=== PATIENT | female | born 1950 | race Caucasian/White ===

== ENCOUNTER → 2017-10-29 14:19 | Outpatient (CLI) | payer MEDICARE, OTHER, SELFPAY | PROVIDERS: Family Provider Family Medicine; PCP Family Medicine; Visit Provider Family Medicine | DX: N95.9 Unspecified menopausal and perimenopausal disorder (principal) | CPT/HCPCS: 77080 ==

== ENCOUNTER → 2017-11-09 07:22 | Outpatient (CLI) | payer MEDICARE, OTHER, SELFPAY | PROVIDERS: Visit Provider Family Medicine | DX: Z12.31 Encounter for screening mammogram for malignant neoplasm of breast (principal) | CPT/HCPCS: 77063; 77067 ==

== ENCOUNTER → 2018-12-17 | Outpatient (CLI) | payer MEDICARE, OTHER, SELFPAY ==
[2018-12-17 10:42] LABS: Alanine Aminotransfer ALT/SGPT 17 U/L (13-56); Anion Gap 4 (5-15); BUN 11 mg/dL (7-18); BUN/Creat Ratio 15.1 RATIO (10-20); Calcium,Total 8.9 mg/dL (8.5-10.1); Chloride 109 mmol/L (98-107); Cholesterol 204 mg/dL (200); Creatinine, Serum 0.73 mg/dL (0.55-1.02); EST Glomerular Filtration Rate 85 mL/min (>60); Est Glom Filt Rate - Afr Amer 103 mL/min (>60); Glucose 84 mg/dL (74-106); High Density Lipoprotein 73 mg/dL; Sodium Level 142 mmol/L (136-145); Triglycerides 80 mg/dL; Very Low Density Lipoprotein 16 mg/dL (5-40)
== END | disposition home or self-care (01) ==
LOC: LAB 08:04
PROVIDERS: Referring Provider Family Medicine; Visit Provider Family Medicine
DX: Z00.00 Encounter for general adult medical examination without abnormal findings (principal); E78.00 Pure hypercholesterolemia, unspecified
CPT/HCPCS: 36415; 80048; 80061; 84443; 84460

== ENCOUNTER → 2020-01-06 | Outpatient (CLI) | payer MEDICARE, OTHER, SELFPAY ==
--- NOTE | 2020-01-06 07:08 | BI_ITS ---
MAMMOGRAPHY - BILATERAL SCREENING REASON FOR EXAM: Female, 69 years old. Routine annual screening examination. PERTINENT HISTORY: Aunt with breast cancer. Remote left stereotactic breast biopsy. TECHNIQUE: Digital bilateral breast maria isabel (3D mammographic acquisition) in the CC and MLO projections. 2-D mediolateral oblique (MLO) and craniocaudad (CC) views of both breasts were obtained. CAD: Full Field Digital Mammography with Computer Added Detection was performed. COMPARISON: Comparison is made with prior study dated 11/09/2017 and 04/26/2013. FINDINGS: Breast Composition: There are scattered areas of fibroglandular density. There are no dominant masses or suspicious calcifications. Stable benign appearing bilateral axillary lymph nodes. A tissue clip marker is seen in the upper deep lateral portion of the left breast. No other significant abnormalities are identified. There has been no significant change since the prior study. BI/SCREEN MAMM (CAD) W/MARIA ISABEL BILAT IMPRESSION: Stable bilateral screening mammogram. Yearly follow-up mammogram recommended. (A) ASSESSMENT CATEGORY: BIRADS Category 2: Benign. A letter regarding these results will be sent to the patient by the facility within 30 days. Approximately 10% of breast cancers are not detected by mammography. A normal mammogram should not delay biopsy of a clinically suspicious abnormality. [id number] Electronically Signed: Neal Lebron, at 10:06 EDT , Service support ,
== END | disposition home or self-care (01) ==
PROVIDERS: Referring Provider Family Medicine; Visit Provider Family Medicine
DX: Z12.31 Encounter for screening mammogram for malignant neoplasm of breast (principal)
CPT/HCPCS: 77063; 77067

== ENCOUNTER 2020-05-24 16:58 | Outpatient (RCR) | payer MEDICARE, OTHER, SELFPAY ==
[2015-07-17 06:03] VITALS: BMI 35.2
[2020-05-24] MEDS: COVID-19 VACC, MRNA(PFIZER)/PF 30 MCG/0.3 ML SYRINGE IM (18:08)
[2020-06-14] MEDS: COVID-19 VACC, MRNA(PFIZER)/PF 30 MCG/0.3 ML SYRINGE IM (17:27)
== END 2020-05-24 23:59 ==
LOC: IMMUN 16:58
PROVIDERS: PCP Family Medicine; Referring Provider Family Medicine; Visit Provider Family Medicine
DX: Z23 Encounter for immunization (principal)
CPT/HCPCS: 0001A; 0002A; 91300

== ENCOUNTER → 2021-03-07 07:28 | Outpatient (CLI) | payer MEDICARE, OTHER, SELFPAY ==
--- NOTE | 2021-03-07 07:31 | BI_ITS ---
MAMMOGRAPHY - BILATERAL SCREENING REASON FOR EXAM: Female, 70 years old. Routine annual screening examination. PERTINENT HISTORY: Aunt with breast cancer. Remote left stereotactic breast biopsy. TECHNIQUE: Digital bilateral breast chema (3D mammographic acquisition) in the CC and MLO projections. 2-D mediolateral oblique (MLO) and craniocaudad (CC) views of both breasts were obtained. CAD: Full Field Digital Mammography with Computer Added Detection was performed. COMPARISON: Comparison is made with prior study dated 01/06/2020 and 11/09/2017. FINDINGS: Breast Composition: There are scattered areas of fibroglandular density. There are no dominant masses or suspicious calcifications. A tissue clip marker is once again seen in the deep upper lateral aspect of the left breast. Stable benign-appearing bilateral axillary lymph nodes. No other significant abnormalities are identified. There has been no significant change since the prior study. BI/SCREENING MAMM (CAD), BILAT IMPRESSION: Stable bilateral screening mammogram. Yearly follow-up mammogram recommended. (A) ASSESSMENT CATEGORY: BIRADS Category 2: Benign. A letter regarding these results will be sent to the patient by the facility within 30 days. Approximately 10% of breast cancers are not detected by mammography. A normal mammogram should not delay biopsy of a clinically suspicious abnormality. [id number] Electronically Signed: Neal eLbron MD at 8:47 EST , Service support ,
== END ==
PROVIDERS: PCP Family Medicine; Visit Provider Nurse Practitioner Family
DX: Z12.31 Encounter for screening mammogram for malignant neoplasm of breast (principal)
CPT/HCPCS: 77067

== ENCOUNTER → 2022-03-10 | Outpatient (CLI) | payer MEDICARE, OTHER, SELFPAY ==
--- NOTE | 2022-03-10 07:27 | BI_ITS ---
MAMMOGRAPHY - BILATERAL SCREENING REASON FOR EXAM: Female, 71 years old. Routine annual screening examination. PERTINENT HISTORY: Aunt with breast cancer. Remote left stereotactic breast biopsy. TECHNIQUE: Digital bilateral breast maria isabel (3D mammographic acquisition) in the CC and MLO projections. 2-D mediolateral oblique (MLO) and craniocaudad (CC) views of both breasts were obtained. CAD: Full Field Digital Mammography with Computer Added Detection was performed. COMPARISON: Comparison is made with prior study dated 03/07/2021 and 01/06/2020. FINDINGS: Breast Composition: There are scattered areas of fibroglandular density. There are no dominant masses or suspicious calcifications. A tissue clip marker is seen in the deep upper slightly lateral aspect of the left breast. Stable small benign-appearing bilateral axillary lymph nodes. No other significant abnormalities are identified. There has been no significant change since the prior study. BI/SCRN MAMM (CAD)W/MARIA ISABEL BILAT IMPRESSION: Stable bilateral screening mammogram. Yearly follow-up mammogram recommended. (A) ASSESSMENT CATEGORY: BIRADS Category 2: Benign. A letter regarding these results will be sent to the patient by the facility within 30 days. Approximately 10% of breast cancers are not detected by mammography. A normal mammogram should not delay biopsy of a clinically suspicious abnormality. [id number] Electronically Signed: Neal Lebron MD at 11:22 EST ,
== END | disposition home or self-care (01) ==
LOC: OPBI 07:24
PROVIDERS: PCP Family Medicine; Visit Provider Nurse Practitioner Family
DX: Z12.31 Encounter for screening mammogram for malignant neoplasm of breast (principal)
CPT/HCPCS: 77063; 77067

== ENCOUNTER 2022-10-08 13:33 | Emergency (ER) | payer MEDICARE, OTHER, SELFPAY ==
[2022-10-08 13:35] VITALS: BP 156/77; PULSE 90; RESP 18; TEMP 36.6; O2SAT 99; BMI 40.1
--- NOTE | 2022-10-08 13:49 | ED.VIS.FALL ---
HPI HPI - Fall History of Present Illness Chief Complaint: Trauma PFSH PFSH Home Medications oxycodone-acetaminophen 5 mg-325 mg tablet 1 tab PO Q4H PRN PRN Pain ##30 07/17/15 [Rx Last Taken Unknown] oxycodone 5 mg capsule 5 mg PO Q6H PRN pain 4 days #16 caps 10/08/22 [Rx Last Taken Unknown] Allergy/AdvReac Type Severity Reaction Status Date / Time No Known Allergies Allergy Verified 10/08/22 13:38 Social History Smoking Status: Never smoker EXAM Physical Exam Const Vital Signs: 10/08/22 13:35 10/08/22 13:33 10/08/22 15:08 Temperature 98 F 97.8 F Temperature Source Temporal Pulse Rate 90 64 Respiratory Rate 18 14 Respiratory Effort Normal Respiratory Depth Normal Respiratory Pattern Normal Blood Pressure 156/77 H 134/78 H Blood Pressure Mean 103 Pulse Ox 99 99 Oxygen Delivery Method Room Air Nasal Cannula MDM MDM MDM Narrative Medical decision making narrative: HISTORY OF PRESENT ILLNESS: 72-year-old female here with fall from truck. notes hit her head. Denies any loss of consciousness. Denies taking blood thinners. She notes left wrist pain. She endorses she is left-hand dominant. Pain is constant, severe worse with movement. She denies any syncope prior to falling. REVIEW OF SYSTEMS: Pertinent positives: Head trauma, left wrist pain Pertinent negatives: Loss of consciousness, focal weakness PHYSICAL EXAM: Nursing triage notes reviewed, Vital signs reviewed Primary Survey Airway: Intact Breathing: Bilateral breath sounds Circulation: Palpable bilateral femorals, Palpable bilateral radial, Palpable bilateral DP and Palpable bilateral PT Disability / Spine precautions GCS Score: Eye Openin Verbal Response: 5 Motor Response: 6 Secondary Survey Constitutional: Please see MDM Head: Abrasions noted to left face, midface stable, NO jaw malocclusion, No Cephalohematoma, and No Lacerations noted Eye: Pupils equal round and reactive to light, Extraocular muscles intact and No periorbital ecchymosis or stepoff, no evidence of entrapment ENT: Oropharynx clear, no lacerations, no hemotympanum, no raccoon eyes or guzman sign Cervical spine / Neck: No cervical spine bony tenderness, crepitance, or stepoff deformity Trachea midline Lungs: Clear to auscultation, No asymmetric rise and No crepitus, no flail chest Cardiac: Regular rate and rhythm and No murmurs Abdomen: Soft, Nontender and No rebound Pelvis: Pelvis stable to compression : No evidence of genital injury Back: No midline bony tenderness to thoracic/lumbar/sacral spines Neuro: At baseline, intact strength and sensation in bilateral upper and lower extremities. 2+ patellar reflexes bilaterally. Extremities: Obvious left wrist deformity, compartments are soft Psych: Normal affect Skin: Abrasions noted to right forehead right maxilla, no obvious lacerations, no evidence of open fracture Nursing triage notes reviewed, Vital signs reviewed MEDICAL DECISION MAKING: Chief Complaint: Fall, head trauma, left wrist pain External records reviewed: No recent advanced imaging the involved extremities Factors affecting care: none Social determinants of health: none History obtained from others: The patient's Consults: none ALL IMAGES (IF OBTAINED) HAVE BEEN PERSONALLY REVIEWED AND INTERPRETED BY MYSELF. MDM Narrative: Patient was hemodynamically stable, afebrile, nontoxic-appearing. Exam with abrasions noted to the right maxilla. There is no intraoral lesions, hemotympanum or jaw malocclusion noted. Given the patient's age greater than [address] I did obtain a CT scan of her head, cervical spine as well as her face to rule out any traumatic injuries. We will also obtain an x-ray of her left wrist. CT scan of the head shows no evidence of acute intracranial hemorrhage. CT scans of the face and cervical spine show no evidence of acute bony abnormalities. X-ray of the left wrist showed evidence of a distal radius fracture ulnar styloid fracture. We will place the patient in a splint. We will give close orthopedics follow-up. I did discuss incidental finding of possible brain lesion/mass per radiology report will give close follow through the [facility]/ [facility] Fast Pass process. The patient and/or family, caregivers express understanding. The patient and/or family, caregivers agrees with the plan. Shared decision making: I will have a discussion with the patient and or visitors regarding risk/benefits of further testing or admission. They will be made aware of of the risk/benefits inherent in this decision they will be given the opportunity to voice understanding. Total critical care time today provided was at least 0 minutes. This excludes separately billable procedures. Critical care time (if documented) is secondary to the patient having high probability of clinically significant/life threatening deterioration in the patient's condition which required my urgent intervention. Radiography Chest X-Ray - ED: Read by ED Physician Diagnostic Testing: Clinical Impression(s) from Imaging Studies Brain CT 10/08/22 14:13 IMPRESSION: There is a partially dense mass along the right extra-axial space of the inferior right temporal lobe. This is may be a meningioma. Possible overlying cerebral edema. CT with IV can better evaluate. Chronic involutional changes of the brain. Electronically Signed: Doe Spencer MD at 14:49 EDT , Cervical Spine CT 10/08/22 14:13 IMPRESSION: (NOT LISTED IN ORDER OF SIGNIFICANCE) Multilevel degenerative changes, as described above. Left mastoid air cell fluid. There is a lytic cystic focus in the C6 vertebral body measuring 6.2mm. Metastatic focus is not excluded. Electronically Signed: Doe Spencer MD at 14:53 EDT , Facial/Sinus 10/08/22 14:13 IMPRESSION: Soft tissue swelling of the right anterior maxilla region. There is no underlying fracture. Electronically Signed: Doe Spencer MD at 14:50 EDT , Wrist X-Ray 10/08/22 14:37 IMPRESSION: There is non-specific soft tissue swelling. Impacted distal radial metadiaphyseal fracture with articular extension. Fracture of the ulnar styloid. Electronically Signed: Doe Spencer MD at 14:54 EDT , X-ray was personally read and reviewed by myself. X-ray of the left wrist shows evidence of a distal radial styloid fracture as well as an avulsion fracture of the distal ulnar styloid by my read. Procedures Upper Extremity Splints Upper Extremity Splint: Orthoglass Splint Fabrication: Fabricated Location: Left Discharge Plan Triage Chief Complaint: Trauma ED Provider: Jesús Jha Dx/Rx/DC Orders Clinical Impression: Fracture of wrist, Brain lesion, CHI (closed head injury), Abrasion of face Prescriptions: New oxycodone 5 mg capsule 5 mg PO Q6H PRN (Reason: pain) 4 Days Qty: 16 0RF No Action oxycodone-acetaminophen 1 TABLET tablet 1 tab PO Q4H PRN PRN (Reason: Pain) Qty: 30 0RF Other Ambulatory Orders: Fast Pass: Oncology Referral [facility] (Routine) Facility: [facility] - Location: [facility] Ordered By: Dr. Jesús Jha Primary Care Provider: Maicol Boyd Referrals: Maicol Boyd MD [Primary Care Provider] - Maikol Reyes MD [Med Staff - Active Staff] - Activity Restrictions/Additional Instructions: Thank you for trusting us with your care today! Please take Tylenol (2 pills, 650 mg), ibuprofen (2 pills, 400 mg) every 6 hours as needed for pain and fever control. Please take oxycodone if the above regimen does not control your pain. Please return to the emergency department if your symptoms change or worsen. Please look out for signs of increasing pain, blue or black discoloration, decree sensation. These are indications to return to the emergency department. Please follow with your primary care physician and orthopedic surgery for further outpatient evaluation and management. Disposition Disposition: Home, Self Care Discharge Date/Time: 10/08/22 15:31
--- NOTE | 2022-10-08 14:13 | CT_ITS ---
STUDY: CT Spine Cervical W/O Contrast Injection 10/08/2022 2:50 PM REASON FOR EXAM: Female, 72 years old. NECK PAIN neck pain after fall HISTORY: NECK PAIN neck pain after fall TECHNIQUE: High resolution transaxial imaging was performed without intravenous administration of contrast material. Sagittal and coronal images were reconstructed. Individualized dose optimization techniques were used for this CT. COMPARISON: None FINDINGS: Normal craniovertebral junction. Normal anterior atlantoaxial articulation. Normal odontoid process. Normal cervical lordosis. There is a lytic cystic focus in the C6 vertebral body measuring 6.2mm. Left mastoid air cell fluid. C2-3: Normal endplates. Normal disc height and morphology. Normal central canal and intervertebral neuroforamina. C3-4: Normal endplates. Normal disc height and morphology. Normal central canal and intervertebral neuroforamina. C4-5: Normal endplates. Normal disc height and morphology. Normal central canal and intervertebral neuroforamina. C5-6: Loss of intervertebral disc height. There is endplate spondylosis of the vertebral body. Normal central canal and intervertebral neuroforamina. There is bilateral facet arthropathy. C6-7: Loss of intervertebral disc height. There is endplate spondylosis of the vertebral body. Normal central canal and intervertebral neuroforamina. There is bilateral facet arthropathy. C7-T1: Normal endplates. Normal disc height and morphology. Normal central canal and intervertebral neuroforamina. Normal visualized soft tissue structures. CT/Spine Cervical without Contras IMPRESSION: (NOT LISTED IN ORDER OF SIGNIFICANCE) Multilevel degenerative changes, as described above. Left mastoid air cell fluid. There is a lytic cystic focus in the C6 vertebral body measuring 6.2mm. Metastatic focus is not excluded. Electronically Signed: Doe Spencer MD at 14:53 EDT Reading Location ID and State: [facility] / [place] , Service support ,
--- NOTE | 2022-10-08 14:13 | CT_ITS ---
STUDY: CT BRAIN WITHOUT CONTRAST REASON FOR EXAM: Female, 72 years old. head trauma Individualized dose optimization techniques were used for this CT. TECHNIQUE: Transaxial CT imaging of the brain was performed without administration of intravenous contrast material. COMPARISON: None FINDINGS: There are calcifications around the carotid artery. These are noted in the cavernous carotid arteries. Normal calvarium. Normal soft tissues. There is a partially dense mass along the right extra-axial space of the inferior right temporal lobe. This is may be a meningioma. Possible overlying cerebral edema. CT with IV can better evaluate. There is mild cerebral atrophy with widening of the extra-axial spaces and ventricular dilatation. There are areas of decreased attenuation within the white matter tracts of the supratentorial brain, consistent with microvascular disease changes. Normal basal ganglia and thalami. Normal brainstem. There is mild cerebellar atrophy. There is no intracranial hemorrhage. There are no findings of an acute ischemic infarction. Normal visualized paranasal sinuses. ASPECTS Score for Acute Strokes: 10/10 CT/Brain/Head without Contrast IMPRESSION: There is a partially dense mass along the right extra-axial space of the inferior right temporal lobe. This is may be a meningioma. Possible overlying cerebral edema. CT with IV can better evaluate. Chronic involutional changes of the brain. Electronically Signed: Doe Spencer MD at 14:49 EDT ,
--- NOTE | 2022-10-08 14:13 | CT_ITS ---
EXAM: CT MAXILLOFACIAL WITHOUT INTRAVENOUS CONTRAST CLINICAL INDICATION: facial trauma TECHNIQUE: Helically acquired images were obtained of the face without intravenous contrast. This CT exam was performed using one or more of the following dose reduction techniques: automated exposure control, adjustment of the mA and/or kV according to patient size, and/or use of iterative reconstruction technique. RADIATION DOSE: CTDIvol = 29.38 mGy, DLP = 488.69 mGy-cm COMPARISON: No relevant prior studies available. FINDINGS: BONES/JOINTS: Degenerative changes of the mandibular condyles. SOFT TISSUES: Soft tissue swelling of the right anterior maxilla region. There is no underlying fracture. No discrete fluid collections. ORBITS: Unremarkable. Both globes are unremarkable. Extraocular muscles are normal. Retrobulbar fat appears unremarkable. SINUSES: Unremarkable as visualized. Clear. MASTOID AIR CELLS: Unremarkable as visualized. Clear. DENTAL: No acute findings. No periodontal osseous erosion. CT/Sinus/Facial Bone IMPRESSION: Soft tissue swelling of the right anterior maxilla region. There is no underlying fracture. Electronically Signed: Doe Spencer MD at 14:50 EDT ,
[2022-10-08] MEDS: Oxycodone/Apap 5/325 Tablet PO (14:23)
--- NOTE | 2022-10-08 14:37 | RAD_ITS ---
STUDY: XR Wrist Min 3 Views REASON FOR EXAM: Female, 72 years old. wrist pain after fall TECHNIQUE: XR Wrist Min 3 Views LEFT COMPARISON: None FINDINGS: There is demineralization of the radius and ulna. There are no acute findings of the radiocarpal articulation. Normal distal radioulnar articulation. There is demineralization of the carpal bones. Normal carpal articulations. There is degenerative arthrosis of the carpometacarpal articulation of the thumb. Normal second through fifth carpometacarpal articulations. There are no acute findings of the visualized metacarpal bones. There is non-specific soft tissue swelling. Impacted distal radial metadiaphyseal fracture with articular extension. Fracture of the ulnar styloid. RAD/Wrist min 3 Views IMPRESSION: There is non-specific soft tissue swelling. Impacted distal radial metadiaphyseal fracture with articular extension. Fracture of the ulnar styloid. Electronically Signed: Doe Spencer MD at 14:54 EDT ,
[2022-10-08 15:08] VITALS: BP 134/78; PULSE 64; RESP 14; TEMP 36.6; O2SAT 99
--- NOTE | 2022-10-08 15:30 | ED.VIS.FALL ---
HPI HPI - Fall History of Present Illness Chief Complaint: Trauma PFSH PFSH Home Medications oxycodone-acetaminophen 5 mg-325 mg tablet 1 tab PO Q4H PRN PRN Pain ##30 07/17/15 [Rx Last Taken Unknown] oxycodone 5 mg capsule 5 mg PO Q6H PRN pain 4 days #16 caps 10/08/22 [Rx Last Taken Unknown] Allergy/AdvReac Type Severity Reaction Status Date / Time No Known Allergies Allergy Verified 10/08/22 13:38 Social History Smoking Status: Never smoker EXAM Physical Exam Const Vital Signs: 10/08/22 13:35 10/08/22 13:33 10/08/22 15:08 Temperature 98 F 97.8 F Temperature Source Temporal Pulse Rate 90 64 Respiratory Rate 18 14 Respiratory Effort Normal Respiratory Depth Normal Respiratory Pattern Normal Blood Pressure 156/77 H 134/78 H Blood Pressure Mean 103 Pulse Ox 99 99 Oxygen Delivery Method Room Air Nasal Cannula MDM MDM Radiography Diagnostic Testing: Clinical Impression(s) from Imaging Studies Brain CT 10/08/22 14:13 IMPRESSION: There is a partially dense mass along the right extra-axial space of the inferior right temporal lobe. This is may be a meningioma. Possible overlying cerebral edema. CT with IV can better evaluate. Chronic involutional changes of the brain. Electronically Signed: Doe Spencer MD at 14:49 EDT , Cervical Spine CT 10/08/22 14:13 IMPRESSION: (NOT LISTED IN ORDER OF SIGNIFICANCE) Multilevel degenerative changes, as described above. Left mastoid air cell fluid. There is a lytic cystic focus in the C6 vertebral body measuring 6.2mm. Metastatic focus is not excluded. Electronically Signed: Doe Spencer MD at 14:53 EDT , Facial/Sinus 10/08/22 14:13 IMPRESSION: Soft tissue swelling of the right anterior maxilla region. There is no underlying fracture. Electronically Signed: Doe Spencer MD at 14:50 EDT , Wrist X-Ray 10/08/22 14:37 IMPRESSION: There is non-specific soft tissue swelling. Impacted distal radial metadiaphyseal fracture with articular extension. Fracture of the ulnar styloid. Electronically Signed: Doe Spencer MD at 14:54 EDT , Discharge Plan Triage Chief Complaint: Trauma ED Provider: Jesús Jha Dx/Rx/DC Orders Clinical Impression: Fracture of wrist, Brain lesion, CHI (closed head injury), Abrasion of face Prescriptions: New oxycodone 5 mg capsule 5 mg PO Q6H PRN (Reason: pain) 4 Days Qty: 16 0RF No Action oxycodone-acetaminophen 1 TABLET tablet 1 tab PO Q4H PRN PRN (Reason: Pain) Qty: 30 0RF Other Ambulatory Orders: Fast Pass: Oncology Referral [facility] (Routine) Facility: [facility] - Location: [facility] Ordered By: Dr. Jesús Jha Primary Care Provider: Maicol Boyd Referrals: Maicol Boyd MD [Primary Care Provider] - Maikol Reyes MD [Med Staff - Active Staff] - Activity Restrictions/Additional Instructions: Thank you for trusting us with your care today! Please take Tylenol (2 pills, 650 mg), ibuprofen (2 pills, 400 mg) every 6 hours as needed for pain and fever control. Please take oxycodone if the above regimen does not control your pain. Please return to the emergency department if your symptoms change or worsen. Please look out for signs of increasing pain, blue or black discoloration, decree sensation. These are indications to return to the emergency department. Please follow with your primary care physician and orthopedic surgery for further outpatient evaluation and management. Disposition Disposition: Home, Self Care
== END 2022-10-08 15:31 | disposition home or self-care (01) ==
PROVIDERS: Emergency Provider Emergency Medicine; PCP Family Medicine; Visit Provider Emergency Medicine
DX: S52.302A Unspecified fracture of shaft of left radius, initial encounter for closed fracture (principal); S00.81XA Abrasion of other part of head, initial encounter; G93.9 Disorder of brain, unspecified; V58.2XXA Person on outside of pick-up truck or van injured in noncollision transport accident in nontraffic accident, initial encounter; S52.612A Displaced fracture of left ulna styloid process, initial encounter for closed fracture; S09.90XA Unspecified injury of head, initial encounter
CPT/HCPCS: 29125; 70450; 70486; 72125; 73110; 99283

== ENCOUNTER → 2022-10-17 | Outpatient (CLI) | payer MEDICARE, OTHER, SELFPAY ==
--- NOTE | 2022-10-17 16:20 | MRI_ITS ---
STUDY: MRI BRAIN WITH AND WITHOUT CONTRAST REASON FOR EXAM: Female, 72 years old. BRAIN MASS SEEN ON CT TECHNIQUE: Standardized multiplanar fat and water weighted pulse sequences were obtained. IV 20ml clariscan was administered for the contrast portion of the examination. COMPARISON: CT of the brain October 08, 2022 FINDINGS: Minor atrophy and periventricular white matter ischemic changes without mass effect or restricted diffusion. . There is a small homogeneously enhancing dural-based in the right anterolateral temporal lobe measuring approximately 1.35 x 1.5 cm with surrounding mild edema but most consistent with meningioma.. Normal bilateral basal ganglia. Normal thalami. There is no extra-axial fluid accumulation. Normal flow voids within the major intracranial circulation suggesting patency by spin echo criteria. Normal venous enhancement. There is mild focal vascular enhancement of the right frontal parietal lobe most likely representing small venous angioma. Normal sella turcica, pituitary gland, infundibular stalk, optic chiasm and hypothalamus. Normal tectal plate and pineal gland. Normal midbrain, luigi and medulla. Normal cerebellum. Normal basal cisterns. Normal bilateral temporal bones. Normal bilateral internal auditory canals. Postsurgical changes of the orbits. Minor mucosal thickening of left ethmoid air cells. Normal calvarium and skull base. Normal visualized soft tissue structures. Normal visualized upper cervical spine. MRI/Brain W/WO Contrast IMPRESSION: Mild periventricular white matter ischemic change without evidence for acute infarct Findings most consistent with small right temporal lobe meningioma with mild associated edema.. Incidental finding of probable venous angioma in the right frontal parietal region likely of no clinical significance Electronically Signed: Harpal Eli MD at 17:35 EDT ,
== END | disposition home or self-care (01) ==
LOC: MRI 16:02
PROVIDERS: PCP Family Medicine; Referring Provider Internal Medicine Hematology & Oncology; Visit Provider Internal Medicine Hematology & Oncology
DX: G93.9 Disorder of brain, unspecified (principal)
CPT/HCPCS: 70553; A9575

== ENCOUNTER → 2022-10-23 | Outpatient (CLI) | payer MEDICARE, OTHER, SELFPAY ==
--- NOTE | 2022-10-23 08:41 | NM_ITS ---
CLINICAL: 72-year-old female with history of sixth cervical vertebra radiographic abnormality. WHOLE BODY 99m Tc MDP RADIONUCLIDE BONE SCINTIGRAPHY COMPARISON: None available FINDINGS: Following the intravenous administration of 26.0 mCi of 99m Tc MDP, whole body bone images reveal: 1. Increased tracer uptake is identified in the mid cervical spine posteriorly on the right, acromioclavicular and sternoclavicular compartments of both shoulders, lateral glenohumeral compartment of the right shoulder, the visualized right wrist, the medial tibial compartment of the right knee, patellofemoral compartments of the bilateral knees, both ankle articulations, the third and fifth lumbar vertebra. 2. The remaining skeletal structures are scintigraphically unremarkable with normal-appearing renal images and urinary bladder activity identified. NM/Bone Scan Whole Body IMPRESSION: 1. The increase in radiopharmaceutical concentration defined in the cervical and lumbar spine, bilateral shoulders, the right wrist, the right-left knees and ankle articulations bilaterally is commensurate with degenerative arthrosis. 2. Meticulous attention paid to the sixth thoracic vertebra demonstrates no scintigraphic abnormalities on the current examination. Electronically Signed: Luis Aguila, at 9:39 EDT ,
== END | disposition home or self-care (01) ==
LOC: NM 08:34
PROVIDERS: PCP Family Medicine; Referring Provider Internal Medicine Hematology & Oncology; Visit Provider Internal Medicine Hematology & Oncology
DX: M89.9 Disorder of bone, unspecified (principal)
CPT/HCPCS: 78306; A9503

== ENCOUNTER 2022-12-24 15:30 | Outpatient (RCR) | payer MEDICARE, OTHER, SELFPAY ==
--- NOTE | 2022-12-03 08:54 | HP.OTEVAL_ITS ---
Patient's Visit Information Visit Information Visit Information: RODRIGO LAWRENCE is a 72 year old F, referred to Occupational Therapy by ULYSSES Shafer, with a diagnosis of left distal radius/ulnar fx. Date of Evaluation: 12/03/22 Occupational Therapist: Fatimah Walter, SARAY/[place], CHT Subjective Subjective: This 72 year old female was seen for OT eval with dx of left Ulna and radius fx - pt state she had fall October 08 2022. pt states she did not realize it was broken- pt states about an hour later left wrist became more painful and went to ER. Pt states she was splinted and referred to [facility] on ThursdayOctober 13 and this was the day she was casted. Cast was removed 11/28/22. pt currently using OTS wrist brace. pt is right handed. pt states she would like to return to her PLOF of IND with ADLs IADLs and volunteering at [employer]. Pain left wrist: Current Pain Intensity: 0 Pain Intensity Range: 2 ROM Wrist: right 65/60 left 45/20 Strength Roll Over Press Operator: right 50# left NT Lateral Pinch: right 18# NT Tripod Pinch: right 12# NT Sensation Sensation Comments: Denies Quick DASH-Disab of Arm,Shoulder& Hand Quick DASH Score: 37.5000 Goals Goal:ROM equal to unaffected hand: Yes Comment: left wrist ROM equal to right to increase IND with ADLS and IADLS by d/c Goal:Roll Over Press Operator/Pinch strength at least 75% of unaffected hand: Yes Comment: will initiate 8 weeks post casting Goal:No pain with affected hand use: Yes Goal:Full use of affected hand in daily activities including work: Yes Rehabilitation General Assessment: pt arrives 7 weeks and 2 days out from DOI. AND 5 days out of cast. pt demo with limited left wrist ROM and inability to use left hand for ADLS and IADls. Pt would benefit from skilled OT services 1-2x week for 4-6 weeks to return pt to her PLOF. Today therapist ed. pt on POC and ed. on AROM ex of wrist and forearm. pt was given handout she demo understanding of ex and agree to POC. Rehabilitation Potential: Excellent Anticipated Interventions Anticipated Interventions: A/AAROM/PROM, Strengthening, Triggerpoint Release, Modalities, Education re Diagnosis and Home Program Visit Plan Frequency: 1-2x /Week Duration: 6 Weeks General Plan: anticipate pt will do well gain functional ROM initiate light strengthening at week 8 as long as no increase in pain TEXT: Thank you for the opportunity to evaluate your patient. For Medicare and Medicare HMO plans, please review the plan of care and approve it. It will need to be FAXED BACK to us at [phone] for Medicare purposes. Please let me know if there are questions or concerns regarding this plan of care. Physician Signature: Date:
== END 2022-12-24 19:00 | disposition home or self-care (01) ==
LOC: OT 15:30
PROVIDERS: PCP Family Medicine; Referring Provider Physician Assistant Surgical; Visit Provider Physician Assistant Surgical
DX: S52.615D Nondisplaced fracture of left ulna styloid process, subsequent encounter for closed fracture with routine healing (principal); S52.515D Nondisplaced fracture of left radial styloid process, subsequent encounter for closed fracture with routine healing
CPT/HCPCS: 97110; 97140; 97166

== ENCOUNTER → 2023-01-26 | Outpatient (CLI) | payer MEDICARE, OTHER, SELFPAY ==
--- NOTE | 2023-01-26 07:58 | MRI_ITS ---
STUDY: MRI CERVICAL SPINE WITH AND WITHOUT CONTRAST REASON FOR EXAM: Female, 72 years old. BONE LESION ON C6 FOUND ON CT 10/08/22 TECHNIQUE: Standardized fat and water weighted pulse sequences were obtained in the sagittal and axial following administration of IV 19ml clariscan. COMPARISON: CT of the cervical spine dated October 08, 2022 FINDINGS: Normal foramen magnum and brainstem-cervical cord junction. Normal craniovertebral junction. Normal anterior atlantoaxial articulation. Normal odontoid process. There is reversal of the normal cervical lordosis. No marrow edema or fracture or compression deformity is present. Small cystic lesion seen C2-3: Normal endplates. Diffuse disc desiccation. Normal disc height and morphology. Normal central canal and intervertebral neural foramina. C3-4: Normal endplates. Diffuse disc desiccation. Normal disc height and morphology. Normal central canal and intervertebral neural foramina. C4-5: Normal endplates. Diffuse disc desiccation with mild disc space narrowing and a moderate size midline disc protrusion measuring 6.1 mm in diameter causing compression on the anterior midline aspect of the cord. Normal intervertebral neural foramina. C5-6: Small benign fatty hemangioma on the right half of the C6 vertebral body. There is no enhancement or lytic or blastic lesion in this region or in the remaining bony structures. The cystic lesion seen on the recent CT is compatible with a hemangioma. Normal endplates. Diffuse disc desiccation with mild disc space narrowing and slight posterior annular bulging. Mild central canal stenosis. Normal intervertebral neural foramina. C6-7: Normal endplates. Diffuse disc desiccation with mild to moderate disc space narrowing and posterior annular bulging eccentric to the left resulting in mild central canal stenosis and thecal sac effacement. Normal intervertebral neural foramina. C7-T1: Normal endplates. Normal disc height, signal and morphology. Normal central canal and intervertebral neural foramina. Normal cervical cord. There is no demonstrated cervical cord syrinx cavity. There are no demyelinating lesions or abnormal enhancement of the spinal cord. Normal visualized soft tissue structures. MRI/Spine Cervical W/WO Contrast IMPRESSION: 1. Multilevel degenerative changes, as described above. 2. Small benign fatty hemangioma on the right half of the C6 vertebral body. There is no enhancement or lytic or blastic lesion in this region or in the remaining bony structures. The cystic lesion seen on the recent CT is compatible with a hemangioma. 3. C4-C5 moderate size midline disc protrusion measuring 6.1 mm in diameter causing compression on the anterior midline aspect of the cord. Electronically Signed: Genaro Amos MD at 15:42 EST ,
== END | disposition home or self-care (01) ==
LOC: MRI 07:54
PROVIDERS: PCP Family Medicine; Referring Provider Internal Medicine Hematology & Oncology; Visit Provider Internal Medicine Hematology & Oncology
DX: M89.9 Disorder of bone, unspecified (principal)
CPT/HCPCS: 72156; A9575

== ENCOUNTER → 2023-03-11 | Outpatient (CLI) | payer MEDICARE, OTHER, SELFPAY ==
--- NOTE | 2023-03-11 07:20 | BI_ITS ---
MAMMOGRAPHY - BILATERAL SCREENING REASON FOR EXAM: Female, 72 years old. Routine annual screening examination. PERTINENT HISTORY: Aunt with breast cancer. History of prior left stereotactic breast biopsy. TECHNIQUE: Digital bilateral breast maria isabel (3D mammographic acquisition) in the CC and MLO projections. 2-D mediolateral oblique (MLO) and craniocaudad (CC) views of both breasts were obtained. CAD: Full Field Digital Mammography with Computer Added Detection was performed. COMPARISON: Comparison is made with prior study dated March 10, 2022 and March 07, 2021. FINDINGS: Breast Composition: There are scattered areas of fibroglandular density. There are no dominant masses or suspicious calcifications. A tissue clip marker is seen in the deep upper slightly outer aspect of the left breast. Stable bilateral fat containing axillary lymph nodes. No other significant abnormalities are identified. There has been no significant change since the prior study. BI/SCRN MAMM (CAD)W/MARIA ISABEL BILAT IMPRESSION: Stable bilateral screening mammogram. Yearly follow-up mammogram recommended. (A) ASSESSMENT CATEGORY: BIRADS Category 2: Benign. A letter regarding these results will be sent to the patient by the facility within 30 days. Approximately 10% of breast cancers are not detected by mammography. A normal mammogram should not delay biopsy of a clinically suspicious abnormality. [id number] Electronically Signed: Neal Lebron MD at 9:11 EST ,
== END | disposition home or self-care (01) ==
LOC: OPBI 07:19
PROVIDERS: PCP Family Medicine; Referring Provider Nurse Practitioner Family; Visit Provider Nurse Practitioner Family
DX: Z12.31 Encounter for screening mammogram for malignant neoplasm of breast (principal)
CPT/HCPCS: 77063; 77067

== ENCOUNTER → 2024-03-25 | Outpatient (CLI) | payer MEDICARE, OTHER, SELFPAY ==
--- NOTE | 2024-03-25 10:46 | BI_ITS ---
MAMMOGRAPHY - BILATERAL SCREENING 3-D TOMOSYNTHESIS REASON FOR EXAM: Female, 73 years old. Routine screen PERTINENT HISTORY: Aunt with breast cancer.. TECHNIQUE: 2-D mammograms and 3-D Tomosynthesis of the breast (s) were performed. CAD was performed. COMPARISON: 03/07/2021 FINDINGS: The breast composition is composed of scattered fibroglandular density. Scattered benign calcifications are seen. No dense spiculated masses or suspicious microcalcifications are identified. No architectural distortion is identified. There is no skin thickening or retraction. There has been no significant change since the prior study. BI/SCRN MAMM (CAD)W/MARIA ISABEL BILAT IMPRESSION: No mammographic signs of malignancy. Routine yearly mammograms recommended. ASSESSMENT CATEGORY: BIRADS Category 1: Negative. A letter regarding these results will be sent to the patient by the facility within 30 days. FOLLOW UP RECOMMENDATION: Yearly follow up mammogram recommended. (A) Approximately 10% of breast cancers are not detected by mammography. A normal mammogram should not delay biopsy of a clinically suspicious abnormality. Electronically Signed: Radu Zurita MD at 13:05 EST ,
== END | disposition home or self-care (01) ==
LOC: OPBI 10:41
PROVIDERS: PCP Family Medicine; Referring Provider Family Medicine; Visit Provider Family Medicine
DX: Z12.31 Encounter for screening mammogram for malignant neoplasm of breast (principal)
CPT/HCPCS: 77063; 77067

== ENCOUNTER 2024-05-06 07:14 | Outpatient (CLI) | payer MEDICARE, OTHER, SELFPAY ==
[2024-05-06 08:16] LABS: ALB/GLOB Ratio 0.8 RATIO (0.9-2.4); AST(SGOT) 16 U/L (15-37); Alanine Aminotransfer ALT/SGPT 20 U/L (13-56); Albumin, Serum 3.3 g/dL (3.2-5.0); Alkaline Phosphatase 100 U/L (45-117); Anion Gap 5 (5-15); BUN 12 mg/dL (7-18); BUN/Creat Ratio 14.9 RATIO (10-20); Calcium,Total 9.1 mg/dL (8.5-10.1); Chloride 110 mmol/L (98-107); Cholesterol 184 mg/dL (200); EST Glomerular Filtration Rate 75 mL/min (>60); Est Glom Filt Rate - Afr Amer 90 mL/min (>60); Globulin 3.9 g/dL (2.2-4.2); Glucose 95 mg/dL (74-106); High Density Lipoprotein 70 mg/dL; Potassium 4.2 mmol/L (3.5-5.1); Protein, Total 7.2 g/dL (6.4-8.2); Sodium Level 143 mmol/L (136-145); Triglycerides 104 mg/dL; Very Low Density Lipoprotein 21 mg/dL (5-40)
[2024-05-06 08:18] LABS: Vitamin D,25 Hydroxy 10.1 ng/mL
== END 2024-05-06 23:59 | disposition home or self-care (01) ==
LOC: LAB 07:16
PROVIDERS: PCP Family Medicine; Referring Provider Family Medicine; Visit Provider Family Medicine
DX: E66.812 Obesity, class 2 (principal); M85.80 Other specified disorders of bone density and structure, unspecified site
CPT/HCPCS: 36415; 80053; 80061; 82306; 84443

== ENCOUNTER → 2024-05-11 | Outpatient (CLI) | payer MEDICARE, OTHER, SELFPAY ==
--- NOTE | 2024-05-11 10:23 | BD_ITS ---
PROCEDURE: DEXA BONE DENSITY STUDY REASON FOR EXAM: F, age 74 y/o . Postmenopausal. TECHNIQUE: DEXA scan of the lumbar spine and both hips. COMPARISON: None. FINDINGS: T-SCORES Lumbar spine: DEXA examination lumbar spine shows a bone mineral density measured 0.904 grams/centimeter sq. T-score measures -1.2 Left hip: Total bone mineral density of the left hip measures 0.956 grams/centimeter sq. T-score measures 0.1 and Z-score measures 1.7. Bone mineral density of the left femoral neck measures 0.669 grams/centimeter squared. T-score measures -1.6 and Z-score measures 0.3. Right hip: Total bone mineral density of the right femoral neck measures 0.975 grams/centimeter squared for T-score measures 0.3 and Z-score measures 1.9. Bone mineral density of the right femoral neck measures 0.729 grams/centimeter sq. T-score measures -1.1 and Z-score measures 0.8. Patient demonstrates osteopenia of the lumbar spine and both hips. FRAX* Results: 10 Year Probability of Fracture: Hip Fracture(1): 15% Major Osteoporotic Fracture(2): 2.3% *FRAX is a trademark of the [employer]'s [place] for Metabolic Bone Disease, World Health Organization (WHO) Collaborating [place]. 1-The 10-year probability of fracture may be lower than reported if the patient has received treatment. 2-Major Osteoporotic Fracture: Clinical Spine, Forearm, Hip or Shoulder. The T-scores are also available for review on the [facility] PACS or by accessing the [facility] electronic medical record. BD/Dexa Bone Density Study IMPRESSION: OSTEOPENIA. Reading Location: [id number]
== END | disposition home or self-care (01) ==
LOC: OPBD 10:17
PROVIDERS: PCP Family Medicine; Referring Provider Family Medicine; Visit Provider Family Medicine
DX: M85.80 Other specified disorders of bone density and structure, unspecified site (principal); Z78.0 Asymptomatic menopausal state
CPT/HCPCS: 77080

== ENCOUNTER 2024-07-25 07:42 | Day surgery (SDC) | payer MEDICARE, OTHER, SELFPAY ==
[2024-07-25] VITALS (8 sets, daily range): BP systolic 103–170; BP diastolic 60–92; PULSE 64–73; RESP 16–18; TEMP 36.3–36.6; O2SAT 94–98; BMI 37.8
[2024-07-25] MEDS: Lactated Ringers 1,000 ML 15 ML IV (08:00)
--- NOTE | 2024-07-25 08:11 | PCM.PRE.AN2 ---
ASA Classification* ASA Classification ASA Classification: 3 (Please check her BP prior to starting the case. If SBP > 180 we will cancel. I discussed with the patient the importance of HTN control, and the patient would like to proceed today knowing the risks of possible PA and CVA given the HTN. May be related to white coat HTN. Otherwise healthy) Assessment & Plan Anesthesia* Anesthesia Assessment Anesthesia Assessment: Discussed sedation and/or anesthesia options, risks, benefits, and alternatives with patient/parents/legal guardian/POA. Questions invited. The patient/parents/legal guardian/POA seems to understand and agrees to proceed with anesthesia plan. Reviewed the physical assessment, medical history, allergy history and patient home medications list prior to surgery/procedure/anesthetic and documented any changes. Performed airway and anesthesia risk assessments. Anesthesia Type Anesthesia Type: General History Source History Obtained from:: Patient and Chart Anesthesia Focused Assessment* Temperature: 97.8 F Pulse Rate: 68 Blood Pressure: 170/91 Respiratory Rate: 18 Pulse Ox: 98 Oxygen Delivery Method: Room Air Airway Assessment Mouth opens: >3 cm Mallampati Score: II Teeth Condition: Intact Neck Range of motion (ROM): Full ROM Focused Labs Anesthesia Preop lab: CBC WBC 6.4 K/mm3 (4.4-11.0) 10/13/22 14:17 10/13/22 RBC 4.52 M/mm3 (4.2-5.4) 10/13/22 14:17 10/13/22 Hgb 10.7 g/dL (12.0-15.0) L 10/13/22 14:17 10/13/22 Hct 36.1 % (37-47) L 10/13/22 14:17 10/13/22 Plt Count 296 K/mm3 (150-450) 10/13/22 14:17 10/13/22 CHEMISTRY Potassium 4.2 mmol/L (3.5-5.1) 05/06/24 07:18 05/06/24 Sodium 143 mmol/L (136-145) 05/06/24 07:18 05/06/24 BUN 12 mg/dL (7-18) 05/06/24 07:18 05/06/24 Creatinine 0.80 mg/dL (0.55-1.02) 05/06/24 07:18 05/06/24 Glucose 95 mg/dL (74-106) 05/06/24 07:18 05/06/24 TSH 2.570 uIU/mL (0.358-3.740) 05/06/24 07:18 05/06/24 COAG Pre-Assessment Diagnosis/Proposed Procedure Planned Operative Procedure(s): CSCOPE OA Anesthesia History Anesthesia History - grade recorder: Anesthesia History - grade recorder Hx Hospitalization No 07/19/24 16:00 Any Problems With Anesthesia No 07/19/24 16:00 Cholinesterase deficiency No 07/19/24 16:00 You/Your Family Experience No 07/19/24 16:00 fever (hyperthermia) with Relationship Recent Exposure to Contagious No 07/25/24 07:56 Disease Does patient have nerve No 07/19/24 16:00 stimulator Patient instructed to have device shut off --Does patient have Pacemaker No 07/25/24 07:56 or ICD? When Was Last Pacemaker Check QUESTION #4 FULL TEXT: You/Your Family Experience fever (hyperthermia) with Anesthesia Last Oral Intake Last Oral intake: Last Oral Intake NPO since 05:00 07/25/24 07:56 Meds taken in AM with sips of No 07/25/24 07:56 water? Meds patient instructed to take am of surgery PONV PONV - grade recorder: PONV - grade recorder Female Yes 07/19/24 16:00 HX of Motion Sickness No 07/19/24 16:00 HX of N/V After Surgery No 07/19/24 16:00 Non-Smoker Yes 07/19/24 16:00 Duration of Surgery greater No 07/19/24 16:00 than 60 minutes Number of Risk Factors 2 07/19/24 16:00 PONV Score Moderate Risk 07/19/24 16:00 Height & Weight Height & Weight: Anesthesia: Height & Weight Height 5 ft 3 in 07/25/24 07:56 Weight: 96.7 kg 07/25/24 07:56 Body Mass Index (BMI) 37.8 07/25/24 07:56 Respiratory Assessment Respiratory Assessment - grade recorder: Respiratory Tract Infection Hx - grade recorder Hx Respiratory Tract Infection No 07/19/24 16:00 STOP Sleep Apnea STOP Sleep Apnea - grade recorder: STOP Sleep Apnea - grade recorder Hx Hypertension No 07/19/24 16:00 Hx Sleep Apnea No 07/19/24 16:00 CPAP BIPAP Do you snore loudly (louder No 07/19/24 16:00 than talking or can be heard Do you often feel tired/ No 07/19/24 16:00 fatigued/ sleepy during daytime? Has anyone observed you stop No 07/19/24 16:00 breathing during sleep? STOP Results Negative 07/19/24 16:00 QUESTION #5 FULL TEXT : Do you snore loudly (louder than talking or can be heard through closed doors)? Tobacco Use History Tobacco Use History - grade recorder: Tobacco Use History - grade recorder Tobacco Use Smoking Status Never smoker 07/19/24 16:00 Hx Tobacco Use No 07/19/24 16:00 Years Smoking Packs Smoked per Day Smoking Cessation Date was within the last 15 years Hx Smoking Cessation Date Hx Smoking Cessation Counseling Hematologic Medial History Hematologic Hx - grade recorder: Hematologic Medical Hx - gis analyst Hx of Blood Transfusion No 07/19/24 16:00 Hx of Transfusion in last 3 No 07/19/24 16:00 Months Date of Last Transfusion (if within last 3 months) Ever experience any problems No 07/19/24 16:00 with transfusion(s)? Specify any problems Hx of Preganancy in last 3 No 07/19/24 16:00 Months Nurse Filling Out Transfusion DSCHRIBER 07/19/24 16:00 & Questions: Date: 07/19/24 07/19/24 16:00 Time: 16:01 07/19/24 16:00 Patient unable to answer at this time (ie. confused, unrespo /Reproduction History /Reproductive History - grade recorder: /Reproductive Hx- grade recorder Hx Now No 07/19/24 16:00 Gestational Age (in weeks): EDC: Hx Hx Para Hx Section SAB No 07/19/24 16:00 Active Medications Active Medications: Current Medications Generic Name Dose Route Start Last Admin Trade Name Freq PRN Reason Stop Dose Admin Lactated Ringer's 1,000 mls @ 15 mls/hr 07/25/24 08:00 07/25/24 08:00 IV 15 mls/hr .Q48H DEEP Administration PFSH Medical History (Updated 07/19/24 @ 16:04 by Kinza Nur) Wears partial dentures Post-menopausal Alcohol use Arthritis Shortness of breath on exertion Non-smoker Family history of colon cancer in father Lesion of bone of cervical spine Brain mass Home Medications ?Medication ?Instructions ?Recorded ?Last Taken ?Type calcium carbonate 600 mg PO DAILY 07/19/24 07/24/24 History cholecalciferol (vitamin D3) 50 50 mcg PO DAILY 07/19/24 07/24/24 History mcg (2,000 unit) capsule (Vitamin D3) Allergy/AdvReac Type Severity Reaction Status Date / Time No Known Allergies Allergy Verified 07/25/24 07:55 Family History Mother Heart disease Brother Cancer throat Father Colon cancer Surgical History (Updated 07/19/24 @ 16:04 by Kinza Nur) Hx of colonoscopy Hx of cataract surgery Hx of appendectomy History of cholecystectomy Social History (Updated 05/17/24 @ 08:32 by Marium Ambrose) household members: spouse housing: house current occupational status: retired Smoking Status: Never smoker alcohol intake: current alcohol intake frequency: holidays/special occasions only substance use type: does not use Review of Systems (Anesthesia) ROS Narrative System reviewed and no additional complaints, except as documented. Physical Exam Const alert, oriented x3 and average body habitus Resp normal respiratory effort, normal air movement and clear to auscultation bilaterally Cardio regular rate, regular rhythm, no murmurs and diaphoretic
--- NOTE | 2024-07-25 08:51 | H&P.OPEN ---
HPI - General General Date of Service: 07/25/24 HPI Narrative RODRIGO LAWRENCE, is a 74 F who presents for screening colonoscopy. Patient last colonoscopy was in [address] Rothman. Patient's father did have colon cancer which did spread in his late 60s. Patient denies any chronic abdominal pain/nausea/vomiting/reflux. Patient has bowel movements every other day denies any blood. [facility] Medical History (Updated 07/25/24 @ 08:[address] Ratna Syed MD) Wears partial dentures Post-menopausal Alcohol use Arthritis Shortness of breath on exertion Non-smoker Family history of colon cancer in father Lesion of bone of cervical spine Brain mass Home Medications ?Medication ?Instructions ?Recorded ?Last Taken ?Type calcium carbonate 600 mg PO DAILY 07/19/24 07/24/24 History cholecalciferol (vitamin D3) 50 50 mcg PO DAILY 07/19/24 07/24/24 History mcg (2,000 unit) capsule (Vitamin D3) Allergy/AdvReac Type Severity Reaction Status Date / Time No Known Allergies Allergy Verified 07/25/24 07:55 Family History Mother Heart disease Brother Cancer throat Father Colon cancer Surgical History (Updated 07/19/24 @ 16:04 by Kinza Nur) Hx of colonoscopy Hx of cataract surgery Hx of appendectomy History of cholecystectomy Social History (Updated 05/17/24 @ 08:32 by Marium Ambrose) household members: spouse housing: house current occupational status: retired Smoking Status: Never smoker alcohol intake: current alcohol intake frequency: holidays/special occasions only substance use type: does not use Past Medical/Surgical History Planned Operation Planned Operative Procedure(s): CSCOPE OA S.O.S: No Previous Hospitalizations/Surgeries HX Hospitalizations: No HX of Surgeries: COLONOSCOPY 2016 VAG CHILDBIRTH X 2 Any Problems With Anesthesia: No You/Your Family Experience Fever (Hyperthermia) With Anes: No Cholinesterase deficiency: No Cardiovascular Hx Chest Pain within Last 2 months: No Hx of Irregular Heartbeat and/or Afib: No Hx Heart Attack: No Hx Congestive Heart Failure: No Hx Rheumatic Fever: No Hx Hypertension: No Hx Internal Defibrillator: No Hx Pacemaker: No Hx Cardiac Catheterization: No Hx Cardiac Surgery/Stents/Etc.: No Hx Stress Test: No Hx Pain in Legs when Walking/Leg Cramps: No Respiratory Chronic Cough: No HX of Shortness of Breath: No Hoarseness: No Hx Chronic Obstructive Pulmonary Disease (COPD): No Hx Asthma: No Hx Emphysema: No Hx Sleep Apnea: No Hx Respiratory Tract Infection/Cold (presently): No Do You Snore Loudly (louder than talking or can be heard): No Do You Often Feel Tired/ Fatigued/ Sleepy Dring Daytime?: No Has Anyone Observed You Stop Breathing During Sleep?: No Result (for STOP score): Negative Hx Smoking: No Smoking Status: Never smoker Gastrointestinal Hx Gastrointestinal Disorders: No Hx Gastrointestinal Bleed: No Hx Ulcer: No Hx Hiatal Hernia: No Difficulty Chewing/Swallowing: No Special diet followed at home: No Hx Unplanned Weight Loss of 20#: No HX Unplanned Weight Gain of 20#: No Neurological Hx Seizures: No HX Syncope/Blackout Spells/Unconsciousness: No Hx Transient Ischemic Attacks (TIA): No Hx Multiple Sclerosis: No Hx Parkinson's Disease: No Hx Head/Neck Injury: No Hx Headaches: No Hx Back Injury/Pain: No Recent Onset of Speech Difficulty: No Restless Legs: No Does patient have nerve stimulator: No Blood Disorder Hx Leukemia: No Bleeding Tendencies: No Hx Deep Vein Thrombosis: No Hx High Cholesterol: Yes (NO MEDS) Blood Transmitted Disease: No Hx Hepatitis: No Hx Cirrhosis: No Hx Anemia: No Hx Blood Disorders: No Reproduction : No Is Patient Lactating: No Hx Hysterectomy: No Hx Tubal Ligation: No Are You Post Menopause: Yes Genitourinary Hx Renal Disease: No Hx Dialysis: No Musculoskeletal Hx Arthritis: Yes Hx Rheumatoid Arthritis: No Hx Gout: No Recent Onset of an Orthopedic Problem: No Endocrine Hx Diabetes: No Thyroid Disease: No Hx Steroid Therapy: No Psycho/Social Hx Substance Use: No Hx Alcohol Use: Yes (OCCASIONAL SOCIAL) Hx Anxiety: No Hx Depression: No Mental Illness: No Hx Dementia: No Miscellaneous Hx Cancer: No Recent Exposure to Contagious Disease: No Hx of C-Diff: No Any Loose Teeth: No Allergies No Known Allergies Allergy (Verified 07/25/24 07:55) Discharge Is Pt Admitted From a Senior Living, or a Halfway: No After D/C, Where Do you Plan to Go: Return Home From the PAT History Number of Risk Factors: 2 Vital Signs Vital Signs Vital Signs: 07/25/24 07:56 07/25/24 07:56 07/25/24 08:16 Temperature 97.8 F 97.8 F Temperature Source Temporal Pulse Rate 68 68 Respiratory Rate 18 18 Respiratory Pattern Normal Blood Pressure 170/91 H 170/91 H Blood Pressure Mean 117 Blood Pressure Source Monitor Blood Pressure Position Semi-Fowlers Blood Pressure Location Left Arm Pulse Ox 98 98 Oxygen Delivery Method Room Air Room Air Weight Weight: 213 lb 2.992 oz Body Mass Index (BMI) 37.8 Physical Exam Const alert, oriented x3 and no apparent distress HEENT normocephalic and head/scalp atraumatic Resp normal respiratory effort Cardio regular rate GI soft to palpation and non-tender; Negative for non-distended Palpation: Negative for guarding Extremity no clubbing, cyanosis or edema Skin no rashes or lesions noted Neuro CN's II-XII intact bilaterally Psych mental status grossly normal Assessment & Plan Assessment/Plan (1) Family history of colon cancer in father: Surgery Risks - Colonoscopy I discussed with the patient the risks of the procedure: Yes Risks Include but are not Limited To: Risks include but are not limited to: Bleeding, perforation requiring further surgery, inability to complete colonoscopy requiring barium enema.
--- NOTE | 2024-07-25 09:58 | PCM.POST.ANE ---
Anesthesia: Postop Eval I Current Vital Signs Temperature: 97.4 F Pulse Rate: 73 Blood Pressure: 103/60 Respiratory Rate: 16 Pulse Ox: 97 Oxygen Delivery Method: Room Air Assessment Airway patent: Yes Spontaneous unlabored respirations: Yes Mental status: Awake and Calm nausea: No Vomiting: No Anesthesia Complication: No Fluid Hydration Crystalloid volume administer (ml): 400 Total IV fluid infused: 400 Progress Note Anesthesia document: Postop Eval 1 completed: Yes
--- NOTE | 2024-07-25 10:02 | OP.CCLET_ITS ---
07/25/2024 Maicol Boyd [address] [place] [address] Re : Colonoscopy procedure for Tasneem Moreno Dear Dr. Boyd This procedure was performed on Thursday, July 25, 2024. My impressions and recommendations are as follows: Impressions : - Hemorrhoids found on perianal exam. - Non-bleeding external and internal hemorrhoids. - Diverticulosis in the sigmoid colon. - The examination was otherwise normal. - No specimens collected. Recommendations : - Discharge patient to home. - Resume previous diet. - Continue present medications. - Repeat colonoscopy in 5 years for surveillance. My findings are described in the full procedure note, which is enclosed. If I can be of further assistance, please feel free to contact me at Doctor phone number(s): , Work: . Sincerely, MD Ratna Galdamez MD 07/25/2024 10:01:39 AM This report has been signed electronically.
--- NOTE | 2024-07-25 10:02 | OP.COLON_ITS ---
Patient Name: Tasneem Moreno Procedure Date: 07/25/2024 9:28 AM Date of : 1950 Age: 74 Procedure: Colonoscopy Indications: Colon cancer screening in patient at increased risk: Colorectal cancer in father Providers: Ratna Syed MD Referring MD: Maicol Boyd Medicines: Monitored Anesthesia Care Patient Profile: This is a 74 year old female. Last Colonoscopy: 2015. Complications: No immediate complications. Procedure: Pre-Anesthesia Assessment: - Prior to the procedure, a History and Physical was performed, and patient medications and allergies were reviewed. The patient's tolerance of previous anesthesia was also reviewed. The risks and benefits of the procedure and the sedation options and risks were discussed with the patient. All questions were answered, and informed consent was obtained. Prior Anticoagulants: The patient has taken no anticoagulant or antiplatelet agents. ASA Grade Assessment: Per anesthesia. After reviewing the risks and benefits, the patient was deemed in satisfactory condition to undergo the procedure. After I obtained informed consent, the scope was passed under direct vision. Throughout the procedure, the patient's blood pressure, pulse, and oxygen saturations were monitored continuously. The Colonoscope was introduced through the anus and advanced to the cecum, identified by the appendiceal orifice, ileocecal valve and palpation. The colonoscopy was performed without difficulty. The patient tolerated the procedure well. The quality of the bowel preparation was good. Scope In: 9:33:35 AM Scope Withdrawal Time 0 hours 8 minutes 5 seconds Scope Out: 9:50:18 AM Total Procedure Duration Time 0 hours 16 minutes 43 seconds Findings: Hemorrhoids were found on perianal exam. Non-bleeding external and internal hemorrhoids were found. The hemorrhoids were small and Grade I (internal hemorrhoids that do not prolapse). Multiple small-mouthed diverticula were found in the sigmoid colon. The exam was otherwise without abnormality. Impression: - Hemorrhoids found on perianal exam. - Non-bleeding external and internal hemorrhoids. - Diverticulosis in the sigmoid colon. - The examination was otherwise normal. - No specimens collected. Recommendation: - Discharge patient to home. - Resume previous diet. - Continue present medications. - Repeat colonoscopy in 5 years for surveillance. Procedure Code(s): --- Professional --- G0105, PT, Colorectal cancer screening; colonoscopy on individual at high risk Diagnosis Code(s): --- Professional --- Z80.0, Family history of malignant neoplasm of digestive organs K64.0, First degree hemorrhoids K57.30, Diverticulosis of large intestine without perforation or abscess without bleeding CPT copyright 2021 [employer]. All rights reserved. The codes documented in this report are preliminary and upon marble and granite polisher review may be revised to meet current compliance requirements. MD Ratna Galdamez MD 07/25/2024 10:01:39 AM This report has been signed electronically. Number of Addenda: 0 Note Initiated On: 07/25/2024 9:28 AM
--- NOTE | 2024-07-25 10:10 | PCM.POSTANE2 ---
Anesthesia Postop Eval I Sum Postop Eval Completion status Anesthesia document: Postop Eval 1 completed: Yes Anesthesia Postop Eval I Summary Anesthesia Postop Eval I Summary: Anesthesia Postop Eval I: Assessment Summary Airway patent Yes 07/25/24 09:59 [email or web address] Spontaneous unlabored Yes 07/25/24 09:59 [email or web address] respirations Mental status Awake,Calm 07/25/24 09:59 [email or web address] nausea No 07/25/24 09:59 [email or web address] Vomiting No 07/25/24 09:59 [email or web address] Anesthesia Postop Eval I: Fluid Summary Crystalloid volume administer 400 07/25/24 09:59 [email or web address] (ml) Colloids volume administered ( ml) Blood Product volume administered (ml) Total IV fluid infused 400 07/25/24 09:59 [email or web address] Anesthesia Postop Eval I: Summary Notes Anesthesia Complication No 07/25/24 09:59 [email or web address] Anesthesia Complication Comment: Post-operative progress note Anesthesia: Postop Eval II Evaluation Mental status: Awake Pain Level: 0 nausea: No Vomiting: No Complications Anesthesia Complication: No
== END 2024-07-25 10:53 | disposition home or self-care (01) ==
LOC: EN 07:42 → AC 07:44
PROVIDERS: PCP Family Medicine; Referring Provider Family Medicine; Visit Provider Surgery
PROC: 0DJD8ZZ Inspection of Lower Intestinal Tract, Via Natural or Artificial Opening Endoscopic (ICD-10-PCS; CPT 45378; principal; 2024-07-25 09:10)
DX: Z12.11 Encounter for screening for malignant neoplasm of colon (principal); K57.30 Diverticulosis of large intestine without perforation or abscess without bleeding; K64.0 First degree hemorrhoids; Z80.0 Family history of malignant neoplasm of digestive organs
CPT/HCPCS: G0105; J2405